=== PATIENT | male | born 2000 | race Caucasian/White ===

== ENCOUNTER 2019-06-14 02:01 | Inpatient (IN) | payer SELFPAY ==
[2019-06-14] VITALS (13 sets, daily range): BP systolic 123–146; BP diastolic 75–85
[~2019-06-14] VITALS: Ht 193 cm; Wt 196.9 kg
--- NOTE | 2019-06-14 02:05 | PHYS DOC ---
Past History Past Medical History: Hypertension Past Medical History MORBID OBESITY, Hx. possible WPW General Adult HPI: HPI: ".. I woke up with this... Chest pain..... and sweating... I have WPW or fast heart rate... they found it on a physical... but it always..or .. usually it goe s away... But I so short of breath.. a weak.. now. dizzy.. .".."I feel.. bad... ".. "This pain.. and fast heart rate.. has not stopped.." Patient is a 18 year old male who presents with above hx and complaints chest discomfort and tachycardia. Patient has a history of WPW. Pt. does not take meds for his occasional dysrhythmia. Pt. reports it never lasts more than a min. or two. Patient denies any change in meds. No excessive caffeine use or illicit drugs. Pt. does not smoke. Pt.has hx Morbid obesity. Patient normally follows with Dr. Pitts. Patient states his WPW was diagnosed on previous physical. Patient has never been any meds for this condition. Patient unable to quantify his chest pain-but rates it as moderately severe pain. Pain is localized to center of her chest. Does not radiate . Pain has been constant since awakening . Pt.very diaphoretic. Attempts at Valsalva resulted no change in the supraventricular tachycardia (rates to 220). Patient became hypotensive with systolics 80s-90. The patient moved to trauma for planned synchronized cardioversion. Patient given fluid bolus of LR . The patient received 300 mg of amiodarone, 2 mg of Versed and was cardioverted with 200 J. Patient had returned to a sinus rhythm in the 70s and elevation his blood pressure into the 120s systolic. Patient reports almost immediate relief of his chest pain and dyspnea. Review of Systems: Review of Systems: Constitutional: Denies fever or chills Eyes: Denies change in visual acuity HENT: Denies nasal congestion or sore throat Respiratory: Complains of shortness of breath Cardiovascular: Complains of chest pain GI: Complains of, nausea. Denies, vomiting, bloody stools or diarrhea : Denies dysuria Musculoskeletal: Denies back pain or joint pain Integument: Denies rash Neurologic: Denies headache, focal weakness or sensory changes Endocrine: Denies polyuria or polydipsia Lymphatic: Denies swollen glands Psychiatric: Denies depression or anxiety Heart Score: HEART Score for Chest Pain: HEART Score for Chest Pain Response (Comments) Value History Highly Suspicious [address] Depression 2 Risk Factors 1 or 2 Risk Factors 1 Troponin < Normal Limit 0 Total 5 Risk Factors: Risk Factors: DM, Current or recent (<one month) smoker, HTN, HLP, family history of CAD, obesity. Risk Scores: Score 0 - 3: 2.5% MACE over next 6 weeks - Discharge Home Score 4 - 6: 20.3% MACE over next 6 weeks - Admit for Clinical Observation Score 7 - 10: 72.7% MACE over next 6 weeks - Early Invasive Strategies Family History: Family History: Noncontributory Current Medications: Current Meds: See nursing for home meds Allergies: Allergies: No known drug allergies Physical Exam: PE: Constitutional: in acute distress, ill in appearance. [] HENT: Normocephalic, atraumatic, bilateral external ears normal, oropharynx moist, no oral exudates, nose normal. [] Eyes: PERRLA, EOMI, conjunctiva normal, no discharge. [] Neck: Normal range of motion, no tenderness, supple, no stridor. [] Cardiovascular: Tachycardia heart rate regular rhythm, no murmur []( heart rates on monitor excess of 220's) Lungs & Thorax: Bilateral breath sounds equal at apex on auscultation [] Abdomen: Bowel sounds decreased, soft, no tenderness, no masses, no pulsatile masses. Morbidly obese. Skin: Warm, diaphoretic, no erythema, no rash. [] Back: No tenderness, no CVA tenderness. [] Extremities: No tenderness, no cyanosis, no clubbing, ROM intact, no edema. No cording appreciated in the legs. Neurologic: Alert and oriented X 3, moves extremities on request, has distal sensory, EKG: EKG: My interpretation of EKG shows a supraventricular tachycardia rate of 225. Does have an ST strain pattern some suggestion of endocardial injury. EKG 1 at 0214 hrs. My interpretation of EKG to at 241 shows a sinus rhythm at 75 bpm. There is still some findings of ST strain pattern. This EKG was done status post synchronized conversion [] Radiology/Procedures: Radiology/Procedures: My interpretation of chest x-ray shows small lung volumes enlarged cardiac silhouette and increased cephalization. [] Course & Med Decision Making: Course & Med Decision Making Pertinent Labs and Imaging studies reviewed. (See chart for details) Pt. Admitted to Dr. Pitts with Cardiology consult. Synchronized cardioversion-see HPI. Critical care time 60 minutes. Impression: 1. Chest pain 2. WPW 3. Morbid obesity 4. HTN 5. Leukocytosis 14.1 6. Thrombocytosis 457 7. Elevated ALT [] Dragon Disclaimer: Dragon Disclaimer: This electronic medical record was generated, in whole or in part, using a voice recognition dictation system. Departure Departure: Disposition: 01 HOME/RESIDENCE PRIOR TO ADM Condition: STABLE Dragon Disclaimer This chart was dictated in whole or in part using Voice Recognition software in a busy, high-work load, and often noisy Emergency Department environment. It may contain unintended and wholly unrecognized errors or omissions. Dragon Disclaimer This chart was dictated in whole or in part using Voice Recognition software in a busy, high-work load, and often noisy Emergency Department environment. It may contain unintended and wholly unrecognized errors or omissions. YEIMI LEMUS MD Jun 14, 2019 02:05
[2019-06-14] MEDS ORDERED: AMIODARONE 150 MG/3 ML VIAL IVP ONE ×3 (02:26→04:30)
[2019-06-14 02:30] LABS: BASO % 0 % (0-3); EOS # 0.6 x10^3/uL (0.0-0.7); EOS % 4 % (0-3); HEMATOCRIT 39.8 % (39.0-53.0); HEMOGLOBIN 13.2 g/dL (13.0-17.5); LYMPH # 4.9 x10^3/uL (1.0-4.8); LYMPH % 35 % (24-48); MEAN CORPUSCULAR HEMOGLOBIN 25 pg (25-35); MEAN CORPUSCULAR HGB CONC 33 g/dL (31-37); MEAN CORPUSCULAR VOLUME 76 fL (79-100); MONO # 1.1 x10^3/uL (0.0-1.1); MONO % 8 % (0-9); NEUT # 7.5 x10^3uL (1.8-7.7); NEUT % 53 % (31-73); PLATELET COUNT 457 x10^3/uL (140-400); RED BLOOD COUNT 5.22 x10^6/uL (4.30-5.70); RED CELL DISTRIBUTION WIDTH 14.6 % (11.5-14.5); WHITE BLOOD COUNT 14.1 x10^3/uL (4.0-11.0)
[2019-06-14] MEDS ORDERED: MORPHINE SULFATE 2 MG/ML DISP.SYRIN. ONE (02:42)
[2019-06-14] MEDS ORDERED: ONDANSETRON PF 4 MG/2 ML VIAL. ONE (02:47)
[2019-06-14 02:52] LABS: ANION GAP 12 (6-14); BLOOD UREA NITROGEN 13 mg/dL (8-26); CALCIUM 8.9 mg/dL (8.5-10.1); CARBON DIOXIDE 27 mmol/L (21-32); CHLORIDE 101 mmol/L (98-107); CREATININE 0.9 mg/dL (0.7-1.3); GFR 107.6; GLUCOSE 118 mg/dL (70-99); POTASSIUM 3.5 mmol/L (3.5-5.1); SODIUM 140 mmol/L (136-145)
[2019-06-14 03:05] LABS: ALBUMIN 3.8 g/dL (3.4-5.0); ALK PHOS 100 U/L (46-116); ALT (SGPT) 65 U/L (16-63); AST (SGOT) 23 U/L (15-37); LIPASE 105 U/L (73-393); MAGNESIUM 2.1 mg/dL (1.8-2.4); TOTAL BILIRUBIN 0.1 mg/dL (0.2-1.0); TOTAL PROTEIN 8.1 g/dL (6.4-8.2)
[2019-06-14] MEDS ORDERED: AMIODARONE 450 MG/9 ML VIAL IV ONE (03:06)
[2019-06-14] MEDS ORDERED: IV DEXTROSE 5% 250 ML IV ONE (03:07)
[2019-06-14 03:12] LABS: DIRECT BILIRUBIN < 0.1 mg/dL (0.0-0.2)
[2019-06-14] MEDS ORDERED: ONDANSETRON PF 4 MG/2 ML VIAL. IVP ONE (03:15)
[2019-06-14] MEDS ORDERED: MORPHINE SULFATE 2 MG/ML DISP.SYRIN. IV ONE (03:15)
[2019-06-14] MEDS ORDERED: IV RINGERS SOLUTION,LACTATED 1,000 ML IV SCH (03:15)
[2019-06-14] MEDS ORDERED: ASPIRIN CHEWABLE 81 MG TABLET. PO ONE (03:15)
[2019-06-14] MEDS ORDERED: MIDAZOLAM HCL PF 5 MG/5 ML VIAL. IV ONE (03:15)
[2019-06-14] MEDS ORDERED: AMIODARONE 150 MG in IV DEXTROSE 5% 100 ML IVP ONE (03:15)
--- NOTE | 2019-06-14 03:18 | RAD ---
EXAM: AP View of the chest DATE: 06/14/2019 2:07 AM INDICATION: Chest pain COMPARISON: No Prior FINDINGS: The heart is not enlarged. Mediastinal and hilar contours are normal. No focal parenchymal airspace opacity. Low lung volumes. No pleural effusion or pneumothorax. IMPRESSION: 1. No radiographic evidence for acute cardiopulmonary process. Electronically signed by: Vijay Cee MD (06/14/2019 3:15 AM) FRITZ
[2019-06-14] MEDS ORDERED: AMIODARONE 450 MG in IV DEXTROSE 5% 250 ML IV ONE ×2 (03:30→04:00)
[2019-06-14] MEDS ORDERED: ONDANSETRON PF 4 MG/2 ML VIAL. IVP PRN (03:30)
[2019-06-14] MEDS ORDERED: MORPHINE SULFATE 2 MG/ML DISP.SYRIN. IVP PRN (03:30)
[2019-06-14] MEDS ORDERED: ACETAMINOPHEN 325 MG TABLET PO PRN (03:30)
[2019-06-14] MEDS ORDERED: ANTI-COAG MONITOR BY PHARMACY. MC PRN (03:45)
[2019-06-14] MEDS ORDERED: ENOXAPARIN ** NOTE DOSE ** SYRINGE SQ ONE (03:45)
--- NOTE | 2019-06-14 04:56 | EKG ---
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
[2019-06-14] MEDS ORDERED: VENL225T PO (05:35)
--- NOTE | 2019-06-14 05:52 | NUR ---
The patient, MARILIN OBANDO, 18 y/o, M admitted by MARY GATES MD, was given written information regarding hospital policies, unit procedures and contact persons. Valuables havent been checked yet due to them not coming up from the ED. ED notified said they would look for them. pt is on telemetry currently sinus rhythm. pt has no complaints at this time and is currently resting in his room with light off.
--- NOTE | 2019-06-14 07:48 | PDOC2 ---
CARDIAC CONSULT DATE OF CONSULT Date Of Consult DATE: 06/14/19 TIME: 07:41 REASON FOR CONSULT Reason for Consult Chest pain Hypertension WPW REFERRING PHYSICIAN Referring Physician Dr. Smith SOURCE Source: Chart review, Patient HPI History of Present Illness This is a 18 yo male who presented secondary to chest pain, tachycardia, and dizziness. Has history of WPW. Was diagnosed in 2018 with routine EKG for something unrelated and had workup conducted at [facility] at that time. Ablation was discuss as a possible future intervention. Patient reports that he has not had any heart or rhythm problems until last night. Was laying in bed last night late and began having pressure in his central chest. Could tell that his heart was beating very fast. Was short of breath, dizzy, and nauseated. Had parents bring him into the ED for further evaluation and treatment. Was noted in SVT with her rate near 225. Valsalva unsuccessful. Was given amiodarone and sedation and cardioverted. Converted back to SR and has been maintaining. Patient felling well this am. PAST MEDICAL HISTORY Cardiovascular: Other (SVT) Endocrine: Other (morbid obesity ) PAST SURGICAL HISTORY Past Surgical History: No pertinent history FAMILY HISTORY Family History: Hypertension SOCIAL HISTORY Smoke: No ALCOHOL: none Drugs: None Lives: with Family CURRENT MEDICATIONS Current Medications Current Medications Aspirin (Aspirin Chewable) 324 mg 1X ONCE PO Last administered on 06/14/19at 03:10; Start 06/14/19 at 03:15; Stop 06/14/19 at 03:16; Status DC Lactated Ringer's 1,000 ml @ 1,000 mls/hr Q1H IV Last administered on 06/14/19at 02:20; Start 06/14/19 at 03:15; Stop 06/14/19 at 04:14; Status DC Amiodarone HCl 150 mg/Dextrose 103 ml @ 300 mls/hr 1X ONCE IVP ; Start 06/14/19 at 03:15; Stop 06/14/19 at 03:35; Status Cancel Midazolam HCl (Versed) 5 mg 1X ONCE IV Last administered on 06/14/19at 02:37; Start 06/14/19 at 03:15; Stop 06/14/19 at 03:16; Status DC Amiodarone HCl (Cordarone) 150 mg STK-MED ONCE IVP ; Start 06/14/19 at 02:26; Stop 06/14/19 at 02:26; Status DC Amiodarone HCl (Cordarone) 150 mg STK-MED ONCE IVP ; Start 06/14/19 at 02:27; Stop 06/14/19 at 02:27; Status DC Morphine Sulfate (Morphine 2mg Syringe) 2 mg STK-MED ONCE .ROUTE ; Start 06/14/19 at 02:42; Stop 06/14/19 at 02:42; Status DC Ondansetron HCl (Zofran) 4 mg STK-MED ONCE .ROUTE ; Start 06/14/19 at 02:47; Stop 06/14/19 at 02:48; Status DC Amiodarone HCl 450 mg/Dextrose 259 ml @ 0 mls/hr 1X ONCE IV ; Start 06/14/19 at 03:30; Stop 06/14/19 at 03:31; Status Cancel Morphine Sulfate (Morphine 2mg Syringe) 2 mg 1X ONCE IV Last administered on 06/14/19at 02:43; Start 06/14/19 at 03:15; Stop 06/14/19 at 03:16; Status DC Enoxaparin Sodium (Lovenox 100mg Syringe) 200 mg 1X ONCE SQ Last administered on 06/14/19at 03:45; Start 06/14/19 at 03:45; Stop 06/14/19 at 03:46; Status DC Ondansetron HCl (Zofran) 8 mg 1X ONCE IVP Last administered on 06/14/19at 02:49; Start 06/14/19 at 03:15; Stop 06/14/19 at 03:16; Status DC Amiodarone HCl (Cordarone) 450 mg STK-MED ONCE IV ; Start 06/14/19 at 03:06; Stop 06/14/19 at 03:07; Status DC Dextrose 250 ml @ As Directed STK-MED ONCE IV ; Start 06/14/19 at 03:07; Stop 06/14/19 at 03:07; Status DC Ondansetron HCl (Zofran) 4 mg PRN Q4HRS PRN IVP NAUSEA/VOMITING; Start 06/14/19 at 03:30; Stop 06/15/19 at 03:29 Morphine Sulfate (Morphine 2mg Syringe) 2 mg PRN Q4HRS PRN IVP PAIN; Start 06/14/19 at 03:30; Stop 06/15/19 at 03:29 Acetaminophen (Tylenol) 650 mg PRN Q4HRS PRN PO FEVER; Start 06/14/19 at 03:30; Stop 06/15/19 at 03:29 Aspirin (Aspirin Chewable) 81 mg DAILYWBKFT PO ; Start 06/14/19 at 08:00 Enoxaparin Sodium (Lovenox 100mg Syringe) 200 mg BID SQ ; Start 06/14/19 at 21:00 Amiodarone HCl 450 mg/Dextrose 259 ml @ 0 mls/hr 1X ONCE IV Last administered on 06/14/19at 03:45; Start 06/14/19 at 04:00; Stop 06/14/19 at 04:01; Status DC Info (Anti-Coagulation Monitoring By Pharmacy) 1 each PRN DAILY PRN MC SEE COMMENTS; Start 06/14/19 at 03:45 Amiodarone HCl (Cordarone) 300 mg 1X ONCE IVP Last administered on 06/14/19at 02:30; Start 06/14/19 at 04:30; Stop 06/14/19 at 04:31; Status DC Active Scripts Active Reported Venlafaxine Hcl Er (Venlafaxine Hcl) 225 Mg Tab.er.24 2 Tab PO DAILY 30 Days ALLERGIES Allergies: Coded Allergies: No Known Drug Allergies (Unverified , 06/14/19) ROS Review of Systems 14 point ROS conducted with pertinent positives noted above in HPI PHYSICAL EXAM General: Alert, Oriented X3, Cooperative, No acute distress HEENT: Atraumatic Lungs: Clear to auscultation, Normal air movement Heart: Regular rate Abdomen: Soft, Other (obese) Skin: No rashes, No breakdown Neuro: Normal speech, Sensation intact Psych/Mental Status: Mental status NL, Mood NL MUSCULOSKELETAL: No joint tenderness VITALS Vital Signs Vital Signs Date Time Temp Pulse Resp B/P (MAP) Pulse Ox O2 Delivery O2 Flow Rate FiO2 06/14/19 07:16 18 06/14/19 06:29 81 136/85 (102) 96 Room Air 06/14/19 05:06 97.6 06/14/19 03:42 LABS LABS Laboratory Tests Test 06/14/19 02:13 White Blood Count 14.1 x10^3/uL (4.0-11.0) Red Blood Count 5.22 x10^6/uL (4.30-5.70) Hemoglobin 13.2 g/dL (13.0-17.5) Hematocrit 39.8 % (39.0-53.0) Mean Corpuscular Volume 76 fL (79-100) Mean Corpuscular Hemoglobin 25 pg (25-35) Mean Corpuscular Hemoglobin Concent 33 g/dL (31-37) Red Cell Distribution Width 14.6 % (11.5-14.5) Platelet Count 457 x10^3/uL (140-400) Neutrophils (%) (Auto) 53 % (31-73) Lymphocytes (%) (Auto) 35 % (24-48) Monocytes (%) (Auto) 8 % (0-9) Eosinophils (%) (Auto) 4 % (0-3) Basophils (%) (Auto) 0 % (0-3) Neutrophils # (Auto) 7.5 x10^3uL (1.8-7.7) Lymphocytes # (Auto) 4.9 x10^3/uL (1.0-4.8) Monocytes # (Auto) 1.1 x10^3/uL (0.0-1.1) Eosinophils # (Auto) 0.6 x10^3/uL (0.0-0.7) Basophils # (Auto) 0.0 x10^3/uL (0.0-0.2) Prothrombin Time 9.3 SEC (9.4-11.4) Prothromb Time International Ratio 0.9 (0.9-1.1) Activated Partial Thromboplast Time 28 SEC (23-33) D-Dimer (Quynh) < 0.19 mg/L (0.00-0.50) Sodium Level 140 mmol/L (136-145) Potassium Level 3.5 mmol/L (3.5-5.1) Chloride Level 101 mmol/L (98-107) Carbon Dioxide Level 27 mmol/L (21-32) Anion Gap 12 (6-14) Blood Urea Nitrogen 13 mg/dL (8-26) Creatinine 0.9 mg/dL (0.7-1.3) Estimated GFR (Cockcroft-Gault) 107.6 Glucose Level 118 mg/dL (70-99) Calcium Level 8.9 mg/dL (8.5-10.1) Magnesium Level 2.1 mg/dL (1.8-2.4) Total Bilirubin 0.1 mg/dL (0.2-1.0) Direct Bilirubin < 0.1 mg/dL (0.0-0.2) Aspartate Amino Transf (AST/SGOT) 23 U/L (15-37) Alanine Aminotransferase (ALT/SGPT) 65 U/L (16-63) Alkaline Phosphatase 100 U/L (46-116) Creatine Kinase 125 U/L (39-308) Troponin I Quantitative < 0.017 ng/mL (0-0.055) TK-Jqp-I-Type Natriuretic Peptide 27 pg/mL (0-124) Total Protein 8.1 g/dL (6.4-8.2) Albumin 3.8 g/dL (3.4-5.0) Lipase 105 U/L (73-393) ASSESSMENT/PLAN Assessment/Plan 1. SVT, symptomatic; s/p cadioversion. Converted to SR and has been maintaining. On Amiodarone gtt 2. WPW; diagnosed 2017 with routine EKG conducted as part of PE. Had workup including echocardiogram at [facility] 3. Leukocytosis, no fevers Recommendations TSH Start metoprolol for rate control ASA Discontinue Amiodarone gtt Obtain records from [facility] UDS Further pending above F/u with [facility] cardiology upon discharge MICHELLE HILL APRN Jun 14, 2019 07:48
[2019-06-14] MEDS ORDERED: ASPIRIN CHEWABLE 81 MG TABLET. PO SCH (08:00)
[2019-06-14] MEDS: METOPROLOL TART IMMED RELEASE 25 MG TABLET PO SCH ×2 (10:15→20:39)
--- NOTE | 2019-06-14 10:26 | NUR ---
IP: patient PUI for COVID-19, requires contact ans airborne precautions.
[2019-06-14] MEDS: VENLAFAXINE 75 MG TABLET. PO SCH ×2 (14:01→20:39)
--- NOTE | 2019-06-14 14:17 | EKG ---
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 CONSIDER WPW, TYPE B Electronically Signed On 06-15-2019 11:14:57 CDT by Beto Francis
--- NOTE | 2019-06-14 15:29 | HP ---
ADMIT DATE: 06/14/2019 HISTORY OF PRESENT ILLNESS: He is a 18-year-old male, he came in through the Emergency Room with a chief complaint of chest pain, has a history of WPW. He has been on cardiac support for this in the past. He has been evaluated by multiple cardiologists for this, anyway he feels bad. The patient had severe chest discomfort, tachycardia. The patient was seen in the Emergency Room, became hypotensive, blood pressure in the 80s and 90s. He had planned synchronized cardio conversion with a fluid bolus of LR received 300 mg of amiodarone, 2 mg of Versed and cardiac converted 200 joules. The patient was then converted back into sinus rhythm. Blood pressure went up to 120, the ER physician did an excellent job there. As a result of this, the patient was admitted to the hospital for further evaluation. He was placed on the floor for cardiac monitoring and Cardiology consultation. PAST MEDICAL HISTORY: As noted, essential hypertension, morbid obesity and history of WPW. Other past medical history includes that of the fracture of the left arm, generalized anxiety. FAMILY HISTORY: Unknown. ALLERGIES: No known allergies. HOME MEDICATIONS: Effexor 225 mg 2 tablets twice a day. SOCIAL HISTORY: Denies smoking, alcohol or drug use. REVIEW OF SYSTEMS: The patient outside of the chest pain, which was converted when they did the cardiac conversion on the ER, otherwise presently just drowsy, sleepy from the Versed that he received. PHYSICAL EXAMINATION: GENERAL: This is a pleasant white male in no apparent distress. VITAL SIGNS: Blood pressure 130/80, respiratory rate 16, pulse 80 and regular, and afebrile. HEENT: The patient's head was atraumatic and normocephalic. Eyes: PERRLA without jaundice. Mouth and throat were normal. NECK: Supple, no JVD or thyromegaly. LUNGS: Diminished throughout, but clear. CARDIOVASCULAR: Presently regular sinus rhythm, S1 and S2, without murmur, rub, thrill, or extra heart sound. ABDOMEN: Soft, nontender, no rebound or guarding. Positive bowel sounds, no hepatosplenomegaly was noted. EXTREMITIES: No clubbing, cyanosis or edema. NEUROLOGIC: The patient was alert and oriented x3. The patient otherwise is resting fairly comfortably and will continue to be monitored carefully. LABORATORY DATA: White count was elevated, no doubt from the cardio conversion and the other paraphernalia performed. His ALT was slightly elevated at 65. Otherwise, blood sugar 118. Good kidney function. GFR unremarkable. EKG pending. IMPRESSION: Weanq-Aojtsxzkx-Loiip, supraventricular tachycardia symptomatic, leukocytosis. The patient will be monitored carefully. Other labs are pending. PLAN: We will go ahead and consult Cardiology, make further evaluation on him as indicated. Chest x-ray was unremarkable. MARY GATES MD DR: LOUISA/cheo JOB#: [id number] / [id number]
--- NOTE | 2019-06-14 16:48 | EKG ---
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
--- NOTE | 2019-06-14 17:50 | NUR ---
Pt taken off amiodarone drip this AM and started on metoprolol per cardiology. Pt tolerated well, vital signs were stable throughout shift. Denies CP. COVID test still pending and pt still on precautions. Pt alert, oriented, rested comfortably in room for shift.
[2019-06-14 19:44] LABS: THYROID STIM HORMONE (TSH) 13.097 uIU/mL (0.358-3.740)
[2019-06-14] MEDS: ENOXAPARIN ** NOTE DOSE ** SYRINGE SQ SCH (20:39)
[2019-06-15 06:22] LABS: BASO # 0.1 x10^3/uL (0.0-0.2); BASO % 1 % (0-3); EOS # 0.4 x10^3/uL (0.0-0.7); EOS % 5 % (0-3); HEMATOCRIT 36.5 % (39.0-53.0); HEMOGLOBIN 12.1 g/dL (13.0-17.5); LYMPH # 3.6 x10^3/uL (1.0-4.8); LYMPH % 39 % (24-48); MEAN CORPUSCULAR HEMOGLOBIN 25 pg (25-35); MEAN CORPUSCULAR HGB CONC 33 g/dL (31-37); MEAN CORPUSCULAR VOLUME 76 fL (79-100); MONO # 0.5 x10^3/uL (0.0-1.1); MONO % 6 % (0-9); NEUT # 4.6 x10^3uL (1.8-7.7); NEUT % 50 % (31-73); PLATELET COUNT 338 x10^3/uL (140-400); RED BLOOD COUNT 4.78 x10^6/uL (4.30-5.70); RED CELL DISTRIBUTION WIDTH 14.3 % (11.5-14.5); WHITE BLOOD COUNT 9.2 x10^3/uL (4.0-11.0)
[2019-06-15 06:31] LABS: CALCIUM 8.9 mg/dL (8.5-10.1); CREATININE 0.9 mg/dL (0.7-1.3); GFR 107.6; POTASSIUM 4.7 mmol/L (3.5-5.1)
[2019-06-15 06:32] VITALS: BP 117/76
--- NOTE | 2019-06-15 07:52 | PDOC ---
CARDIO Progress Notes Date & Time Date of Service DATE: 06/15/19 TIME: 07:45 Time of Evaluation 07:45 Subjective Notes No chest pain, palpitations, dizziness, diaphoresis Vitals Vitals Vital Signs Date Time Temp Pulse Resp B/P (MAP) Pulse Ox O2 Delivery O2 Flow Rate FiO2 06/15/19 06:32 98.2 58 20 117/76 (90) 96 Room Air 06/14/19 03:42 Weight Weight [ ] Input and Output I.O. Intake and Output 06/15/19 07:00 Intake Total 360 ml Balance 360 ml Intake Oral 360 ml # Voids 2 Laboratory Labs Laboratory Tests Test 06/14/19 02:13 06/14/19 05:45 06/15/19 05:49 White Blood Count 14.1 x10^3/uL (4.0-11.0) 9.2 x10^3/uL (4.0-11.0) Red Blood Count 5.22 x10^6/uL (4.30-5.70) 4.78 x10^6/uL (4.30-5.70) Hemoglobin 13.2 g/dL (13.0-17.5) 12.1 g/dL (13.0-17.5) Hematocrit 39.8 % (39.0-53.0) 36.5 % (39.0-53.0) Mean Corpuscular Volume 76 fL (79-100) 76 fL (79-100) Mean Corpuscular Hemoglobin 25 pg (25-35) 25 pg (25-35) Mean Corpuscular Hemoglobin Concent 33 g/dL (31-37) 33 g/dL (31-37) Red Cell Distribution Width 14.6 % (11.5-14.5) 14.3 % (11.5-14.5) Platelet Count 457 x10^3/uL (140-400) 338 x10^3/uL (140-400) Neutrophils (%) (Auto) 53 % (31-73) 50 % (31-73) Lymphocytes (%) (Auto) 35 % (24-48) 39 % (24-48) Monocytes (%) (Auto) 8 % (0-9) 6 % (0-9) Eosinophils (%) (Auto) 4 % (0-3) 5 % (0-3) Basophils (%) (Auto) 0 % (0-3) 1 % (0-3) Neutrophils # (Auto) 7.5 x10^3uL (1.8-7.7) 4.6 x10^3uL (1.8-7.7) Lymphocytes # (Auto) 4.9 x10^3/uL (1.0-4.8) 3.6 x10^3/uL (1.0-4.8) Monocytes # (Auto) 1.1 x10^3/uL (0.0-1.1) 0.5 x10^3/uL (0.0-1.1) Eosinophils # (Auto) 0.6 x10^3/uL (0.0-0.7) 0.4 x10^3/uL (0.0-0.7) Basophils # (Auto) 0.0 x10^3/uL (0.0-0.2) 0.1 x10^3/uL (0.0-0.2) Prothrombin Time 9.3 SEC (9.4-11.4) Prothromb Time International Ratio 0.9 (0.9-1.1) Activated Partial Thromboplast Time 28 SEC (23-33) D-Dimer (Quynh) < 0.19 mg/L (0.00-0.50) Sodium Level 140 mmol/L (136-145) 138 mmol/L (136-145) Potassium Level 3.5 mmol/L (3.5-5.1) 4.7 mmol/L (3.5-5.1) Chloride Level 101 mmol/L (98-107) 103 mmol/L (98-107) Carbon Dioxide Level 27 mmol/L (21-32) 29 mmol/L (21-32) Anion Gap 12 (6-14) 6 (6-14) Blood Urea Nitrogen 13 mg/dL (8-26) 12 mg/dL (8-26) Creatinine 0.9 mg/dL (0.7-1.3) 0.9 mg/dL (0.7-1.3) Estimated GFR (Cockcroft-Gault) 107.6 107.6 Glucose Level 118 mg/dL (70-99) 92 mg/dL (70-99) Calcium Level 8.9 mg/dL (8.5-10.1) 8.9 mg/dL (8.5-10.1) Magnesium Level 2.1 mg/dL (1.8-2.4) Total Bilirubin 0.1 mg/dL (0.2-1.0) Direct Bilirubin < 0.1 mg/dL (0.0-0.2) Aspartate Amino Transf (AST/SGOT) 23 U/L (15-37) Alanine Aminotransferase (ALT/SGPT) 65 U/L (16-63) Alkaline Phosphatase 100 U/L (46-116) Creatine Kinase 125 U/L (39-308) Troponin I Quantitative < 0.017 ng/mL (0-0.055) CG-Uoj-I-Type Natriuretic Peptide 27 pg/mL (0-124) Total Protein 8.1 g/dL (6.4-8.2) Albumin 3.8 g/dL (3.4-5.0) Triglycerides Level 186 mg/dL (0-150) Cholesterol Level 193 mg/dL (0-200) LDL Cholesterol, Calculated 107 mg/dL (0-100) VLDL Cholesterol, Calculated 37 mg/dL (0-40) Non-HDL Cholesterol Calculated 144 mg/dL (0-129) HDL Cholesterol 49 mg/dL (40-60) Cholesterol/HDL Ratio 3.0 Lipase 105 U/L (73-393) Thyroid Stimulating Hormone (TSH) 13.097 uIU/mL (0.358-3.740) Coronavirus (COVID-19)(PCR) See separate report Physical Exams HEENT: Neck Supple W Full Motion Chest: Symmetric Lungs: Clear to Auscultation Heart: S1S2, RRR Abdomen: Soft N/T, Other (obese ) Extremities: No Edema Neurology: alert, oriented Assessment Assessment 1. SVT, symptomatic; s/p cardioversion. Converted to SR and has been maintaining. 2. WPW; diagnosed 2018 with routine EKG conducted as part of PE. Had workup including echocardiogram at [facility] 3. Hyperlipidemia 4. Hypothyroidism; as per PCP Recommendations Metoprolol for rate control ASA Encouraged dietary modification and exercise/weight loss F/u with [facility] cardiology upon discharge MICHELLE HILL APRN Jun 15, 2019 07:52
[2019-06-15] MEDS ORDERED: ASPIRIN ENTERIC COATED 81 MG TABLET.DR. PO SCH (08:00)
[2019-06-15] MEDS ORDERED: METO25TA4 PO (08:55)
[2019-06-15] MEDS ORDERED: ASPI-612 PO (08:55)
[2019-06-15] MEDS: METOPROLOL TART IMMED RELEASE 25 MG TABLET PO SCH (09:00)
[2019-06-15] MEDS: ENOXAPARIN ** NOTE DOSE ** SYRINGE SQ SCH (09:00)
[2019-06-15] MEDS: VENLAFAXINE 75 MG TABLET. PO SCH (09:00)
[2019-06-15] MEDS ORDERED: LEVOTHYROXINE 100 MCG TABLET PO SCH (09:30)
[2019-06-15 10:55] LABS: BARBITURATES NEG (NEG); BENZODIAZEPINES POS (NEG); CANNABINOIDS NEG (NEG); COCAINE NEG (NEG); METHADONE NEG (NEG); OPIATES NEG (NEG); PHENCYCLIDINE NEG (NEG)
[2019-06-15 11:00] VITALS: BP 135/66
[2019-06-15 11:01] LABS: AMPHETAMINE/METHAMPHETAMINE NEG (NEG)
[2019-06-15] MEDS ORDERED: LEVO100T5 PO (11:05)
--- NOTE | 2019-06-15 11:50 | NUR ---
Discharge Note: MARILIN OBANDO1 [facility] Discharge instructions and discharge home medications reviewed with Patient and a copy given. All questions have been answered and understanding verbalized. Patient left the unit via wheelchair with all personal belongings. Patient was discharged to home and transported by a family member. The following instructions and handouts were given: Bradycardia, Hypotension, chest pain, and WPW syndrome. Discontinued all peripheral lines. Tele removed.
[2019-06-15 12:02] LABS: BILIRUBIN,URINE NEG (NEG); CLARITY,URINE CLEAR; COLOR,URINE YELLOW; GLUCOSE,URINE NEG (NEG); NITRITE,URINE NEG (NEG); UROBILINOGEN,URINE 0.2 mg/dL (0.2 mg/dL)
[2019-06-15 12:03] LABS: BACTERIA,URINE 0 /HPF (0-FEW); SQUAMOUS EPITHELIAL CELL,UR OCC /LPF; WBC,URINE OCC /HPF (0-4)
--- NOTE | 2019-06-16 11:30 | DS ---
DATE OF DISCHARGE: 06/15/2019 HOSPITAL COURSE: A 18-year-old male came in with possible WPW versus SVT. The patient was cardio converted in the Emergency Room and came back into sinus rhythm. The patient's labs did show an elevated TSH of 13. He was placed on levothyroxine 100 mcg. Cholesterol labs were basically unremarkable. He made good progress. He was seen by Cardiology. 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 Otherwise, the patient made good progress during the rest of his hospitalization and there were no complications noted. IMPRESSION: Supraventricular tachycardia, symptomatic, possible Adqwf-Ztukgqzap-Zssdd, diagnosed in 2018; hyperlipidemia, hypothyroidism. The patient uses metoprolol for rate control. Make further evaluation on an outpatient, low sodium heart healthy diet, decreased activity. PLAN: As above. MARY GATES MD DR: LOUISA/cheo JOB#: [id number] / [id number]
== END 2019-06-15 11:50 | disposition home or self-care (01) | DRG 309 ==
LOC: ER 02:01 → 1 SOUTH 03:00
PROVIDERS: ADMIT Family Medicine; ATTEND Family Medicine
PROC: 5A2204Z Restoration of Cardiac Rhythm, Single (ICD-10-PCS; principal; 2019-06-14)
DX: I47.1 Supraventricular tachycardia (principal); Z68.43 Body mass index [BMI] 50.0-59.9, adult; D72.829 Elevated white blood cell count, unspecified; E03.9 Hypothyroidism, unspecified; E66.01 Morbid (severe) obesity due to excess calories; E78.5 Hyperlipidemia, unspecified; F41.1 Generalized anxiety disorder; I10 Essential (primary) hypertension; I45.6 Pre-excitation syndrome; D47.3 Essential (hemorrhagic) thrombocythemia; Z82.49 Family history of ischemic heart disease and other diseases of the circulatory system
CPT/HCPCS: 36415; 71045; 80048; 80061; 80076; 80307; 81001; 82550; 83690; 83735; 83880; 84443; 84484; 85025; 85379; 85610; 85730; 93005; J0282; J1650; J2250; J2270; J2405; J7120

== ENCOUNTER 2019-07-15 02:23 | Inpatient (IN) | payer SELFPAY ==
[~2019-07-15] VITALS: Ht 193 cm; Wt 200.0 kg
[~2019-07-15 02:23] MED LIST: ASPI-612 PO; LEVO100T5 PO; METO25TA4 PO; VENL225T PO
[2019-07-15] MEDS ORDERED: IV NORMAL SALINE 1,000ML 1,000 ML IV ONE ×2 (02:36→02:50)
[2019-07-15] MEDS ORDERED: MIDAZOLAM HCL PF 5 MG/5 ML VIAL. ONE (02:51)
[2019-07-15 02:54] LABS: BASO % 0 % (0-3); EOS # 0.5 x10^3/uL (0.0-0.7); EOS % 4 % (0-3); HEMATOCRIT 40.2 % (39.0-53.0); HEMOGLOBIN 13.2 g/dL (13.0-17.5); LYMPH # 3.9 x10^3/uL (1.0-4.8); LYMPH % 31 % (24-48); MEAN CORPUSCULAR HEMOGLOBIN 25 pg (25-35); MEAN CORPUSCULAR HGB CONC 33 g/dL (31-37); MEAN CORPUSCULAR VOLUME 75 fL (79-100); MONO % 8 % (0-9); NEUT # 7.1 x10^3uL (1.8-7.7); NEUT % 56 % (31-73); PLATELET COUNT 402 x10^3/uL (140-400); RED BLOOD COUNT 5.34 x10^6/uL (4.30-5.70); RED CELL DISTRIBUTION WIDTH 14.6 % (11.5-14.5); WHITE BLOOD COUNT 12.5 x10^3/uL (4.0-11.0)
[2019-07-15] MEDS ORDERED: MIDAZOLAM HCL PF 5 MG/5 ML VIAL. IV ONE (02:58)
[2019-07-15] MEDS ORDERED: METOPROLOL TARTRATE 5 MG/5 ML VIAL. IV ONE (03:00)
[2019-07-15 03:07] LABS: CALCIUM 9.1 mg/dL (8.5-10.1); GFR 95.3; POTASSIUM 3.9 mmol/L (3.5-5.1)
[2019-07-15 03:08] LABS: ALBUMIN 3.7 g/dL (3.4-5.0); ALBUMIN/GLOBULIN RATIO 0.8 (1.0-1.7); MAGNESIUM 2.2 mg/dL (1.8-2.4); TOTAL BILIRUBIN 0.3 mg/dL (0.2-1.0); TOTAL PROTEIN 8.1 g/dL (6.4-8.2)
--- NOTE | 2019-07-15 03:15 | EKG ---
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
[2019-07-15] MEDS ORDERED: ONDANSETRON PF 4 MG/2 ML VIAL. IVP PRN (03:30)
--- NOTE | 2019-07-15 03:30 | PHYS DOC ---
Past History Past Medical History: Hypertension, Other Additional Past Medical Histor: wpw Past Surgical History: No Surgical History Alcohol Use: None General Adult EDM: Chief Complaint: Palpitations HPI: HPI: Patient is a 18-year-old male who presents to ER today for evaluation of chest pain with heart palpitation, woke him up from his sleep. Patient has history of SVT, WPW. Patient was not admitted here in June for the same problem. Patient is currently on levothyroxine, metoprolol. Patient is scheduled for cardiac ablation sometime in August. Patient said he has been taking his medication as directed. Patient denies any fever, no cough. Patient denies being exposed to anybody who tested positive for COVID-19. Review of Systems: Review of Systems: Constitutional: Denies fever or chills Eyes: Denies change in visual acuity HENT: Denies nasal congestion or sore throat Respiratory: Denies cough or shortness of breath Cardiovascular: Positive for chest pain, heart palpitation GI: Denies abdominal pain, nausea, vomiting, bloody stools or diarrhea : Denies dysuria Musculoskeletal: Denies back pain or joint pain Integument: Denies rash Neurologic: Denies headache, focal weakness or sensory changes Endocrine: Denies polyuria or polydipsia Lymphatic: Denies swollen glands Psychiatric: Denies depression or anxiety Heart Score: HEART Score for Chest Pain: HEART Score for Chest Pain Response (Comments) Value History Slighlty/Non-Suspicious 0 ECG Nonspecific Repolarizatio 1 Age < 45 0 Risk Factors 1 or 2 Risk Factors 1 Total 2 Risk Factors: Risk Factors: DM, Current or recent (<one month) smoker, HTN, HLP, family history of CAD, obesity. Risk Scores: Score 0 - 3: 2.5% MACE over next 6 weeks - Discharge Home Score 4 - 6: 20.3% MACE over next 6 weeks - Admit for Clinical Observation Score 7 - 10: 72.7% MACE over next 6 weeks - Early Invasive Strategies Current Medications: Current Meds: Current Medications Medications (Trade) Dose Ordered Sig/Tramaine Start Time Stop Time Status Last Admin Dose Admin Metoprolol Tartrate (Lopressor Vial) 5 mg 1X ONCE 07/15/19 03:00 07/15/19 03:11 DC Midazolam HCl (Versed) 5 mg STK-MED ONCE 07/15/19 02:51 07/15/19 02:51 DC Ondansetron HCl (Zofran) 4 mg PRN Q4HRS PRN 07/15/19 03:30 07/16/19 03:29 UNV Allergies: Allergies: Allergies Coded Allergies Type Severity Reaction Last Updated Verified No Known Drug Allergies 06/14/19 No Physical Exam: PE: Constitutional: Well developed, well nourished, IN MILD acute distress, non- toxic appearance. [] HENT: Normocephalic, atraumatic, bilateral external ears normal, oropharynx moist, no oral exudates, nose normal. [] Eyes: PERRLA, EOMI, conjunctiva normal, no discharge. [] Neck: Normal range of motion, no tenderness, supple, no stridor. [] Cardiovascular: RAPID HEART RATE , no murmur [] Lungs & Thorax: Bilateral breath sounds clear to auscultation [] Abdomen: Bowel sounds normal, soft, no tenderness, no masses, no pulsatile masses. [] Skin: PALE AND DIAPHORESIS, no erythema, no rash. [] Back: No tenderness, no CVA tenderness. [] Extremities: No tenderness, no cyanosis, no clubbing, ROM intact, no edema. [] Neurologic: Alert and oriented X 3, normal motor function, normal sensory function, no focal deficits noted. [] Psychologic: Affect normal, judgement normal, mood normal. [] Current Patient Data: Labs: Laboratory Tests Test 07/15/19 02:36 White Blood Count 12.5 x10^3/uL (4.0-11.0) H Red Blood Count 5.34 x10^6/uL (4.30-5.70) Hemoglobin 13.2 g/dL (13.0-17.5) Hematocrit 40.2 % (39.0-53.0) Mean Corpuscular Volume 75 fL (79-100) L Mean Corpuscular Hemoglobin 25 pg (25-35) Mean Corpuscular Hemoglobin Concent 33 g/dL (31-37) Red Cell Distribution Width 14.6 % (11.5-14.5) H Platelet Count 402 x10^3/uL (140-400) H Neutrophils (%) (Auto) 56 % (31-73) Lymphocytes (%) (Auto) 31 % (24-48) Monocytes (%) (Auto) 8 % (0-9) Eosinophils (%) (Auto) 4 % (0-3) H Basophils (%) (Auto) 0 % (0-3) Neutrophils # (Auto) 7.1 x10^3uL (1.8-7.7) Lymphocytes # (Auto) 3.9 x10^3/uL (1.0-4.8) Monocytes # (Auto) 1.0 x10^3/uL (0.0-1.1) Eosinophils # (Auto) 0.5 x10^3/uL (0.0-0.7) Basophils # (Auto) 0.0 x10^3/uL (0.0-0.2) Sodium Level 139 mmol/L (136-145) Potassium Level 3.9 mmol/L (3.5-5.1) Chloride Level 104 mmol/L (98-107) Carbon Dioxide Level 24 mmol/L (21-32) Anion Gap 11 (6-14) Blood Urea Nitrogen 19 mg/dL (8-26) Creatinine 1.0 mg/dL (0.7-1.3) Estimated GFR (Cockcroft-Gault) 95.3 BUN/Creatinine Ratio 19 (6-20) Glucose Level 107 mg/dL (70-99) H Calcium Level 9.1 mg/dL (8.5-10.1) Magnesium Level 2.2 mg/dL (1.8-2.4) Total Bilirubin 0.3 mg/dL (0.2-1.0) Aspartate Amino Transferase (AST) 25 U/L (15-37) Alanine Aminotransferase (ALT) 75 U/L (16-63) H Alkaline Phosphatase 98 U/L (46-116) Troponin I Quantitative < 0.017 ng/mL (0-0.055) Total Protein 8.1 g/dL (6.4-8.2) Albumin 3.7 g/dL (3.4-5.0) Albumin/Globulin Ratio 0.8 (1.0-1.7) L Vital Signs: Vital Signs Date Time Temp Pulse Resp B/P (MAP) Pulse Ox O2 Delivery O2 Flow Rate FiO2 07/15/19 02:23 97.6 223 18 135/66 (89) 96 Room Air EKG: EKst EKG WAS DONE AT 0236, RATE OF 229 BPM, SVT, WPW pattern. No stemi. Read by this physician[] 2ND EKG was done at 0303 after cardioversion, rate of 82 bpm, sinus rhythm, NO STEMI. Read by this physician. Radiology/Procedures: Radiology/Procedures: [address] [address] IMAGING REPORT Signed PATIENT: MARILIN OBANDO ACCOUNT: [id number] : 2000 LOCATION: ER AGE: 18 SEX: M EXAM STATUS: REG ER ORD. PHYSICIAN: MARY VILLALPANDO DO REASON: chest pain, soa PROCEDURE: CHEST AP ONLY CHEST AP ONLY Clinical History: Chest pain and dyspnea Technique: AP view of the chest was obtained at 07/15/2019 3:27 AM. Comparison: June 14, 2019. Findings: The cardiomediastinal silhouette is normal. The pulmonary vasculature is normal. There are linear opacities in the lung bases left more than right. Impression: Mild basal infiltrates likely discoid atelectasis. Electronically signed by: Merry Quintanilla III, MD (07/15/2019 3:46 AM) [id number] DICTATED AND SIGNED BY: MERRY QUINTANILLA III, MD DATE: 07/15/19 0346 CC: MARY GATES MD; MARY VILLALPANDO DO ~ Course & Med Decision Making: Course & Med Decision Making Pertinent Labs and Imaging studies reviewed. (See chart for details) Patient is a 18-year-old male with a history of SVT, WPW, currently on levothyroxine , metoprolol, scheduled for cardiac ablation sometime in August, woke up this morning with chest pain and heart palpitation. He came to ER with heart rate of about 230 beats per minutes, having chest pain trouble breathing a nd diaphoresis. Patient was given 5 mg of Lopressor IV, his heart rate slowed down to about 154 bpm but then went back up to about 200 beats per minutes. Patient continued to have diaphoresis, therefore he was given IV fluids, his blood pressure was rechecked and it was 136/75, heart rate was about 220 bpm, patient was given 5 mg of Versed IV, he was then cardioverted synchronized at 150 J. He was converted to NSR. He felt much better and his blood pressure improved, no longer diaphoresis. Patient will be admitted to the hospital for observation. Critical care time was [45] minutes exclusive of procedures. Dragon Disclaimer: Dragon Disclaimer: This electronic medical record was generated, in whole or in part, using a voice recognition dictation system. Departure Departure: Impression: Primary Impression: WPW (Qykpm-Tgrjyserv-Tuzjx syndrome) Additional Impressions: SVT (supraventricular tachycardia) Chest pain Disposition: ADMITTED INPATIENT Condition: IMPROVED Referrals: MARY GATES MD (PCP) Procedural Sedation Proc Sed Indication:electrical cardioversion due to SVT/WPW Consent: FROM PATIENT Physician Involvement: The attending physician was present and supervising this procedure. Pre-Sedation Documentation and Exam: ABOVE NOTE Airway Assessment: CLEAR, INTACT Prior History of Anesthesia Complications: NONE ASA Classification: 1 Sedation/ Anesthesia Plan: MODERATE SEDATION Medications Used: 5 MG VERSED IV Monitoring and Safety: The patient was placed on a medical support assistant and vital signs, pulse oximetry and level of consciousness were continuously evaluated throughout the procedure. The patient was closely monitored until recovery from the medications was complete and the patient had returned to baseline status. Respiratory therapy was on standby at all times during the procedure. (The following sections must be completed) Post-Sedation Vital Signs: [EDM.VS] Post-Sedation Exam: STABLE. Complications: NONE Vital Signs Vital Signs Date Time Temp Pulse Resp B/P (MAP) Pulse Ox O2 Delivery O2 Flow Rate FiO2 07/15/19 02:23 97.6 223 18 135/66 (89) 96 Room Air MARY VILLALPANDO DO July 15, 2019 03:30
--- NOTE | 2019-07-15 03:48 | RAD ---
CHEST AP ONLY Clinical History: Chest pain and dyspnea Technique: AP view of the chest was obtained at 07/15/2019 3:27 AM. Comparison: June 14, 2019. Findings: The cardiomediastinal silhouette is normal. The pulmonary vasculature is normal. There are linear opacities in the lung bases left more than right. Impression: Mild basal infiltrates likely discoid atelectasis. Electronically signed by: Go Torres III, MD (07/15/2019 3:46 AM) [id number]
[2019-07-15 04:40] VITALS: BP 128/84
--- NOTE | 2019-07-15 06:58 | EKG ---
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
[2019-07-15] MEDS ORDERED: LEVOTHYROXINE 100 MCG TABLET PO SCH (07:30)
[2019-07-15 07:58] VITALS: BP 110/72
[2019-07-15] MEDS ORDERED: ASPIRIN ENTERIC COATED 81 MG TABLET.DR. PO SCH (08:00)
--- NOTE | 2019-07-15 08:39 | PDOC2 ---
CARDIAC CONSULT DATE OF CONSULT Date Of Consult DATE: 07/15/19 TIME: 08:31 REASON FOR CONSULT Reason for Consult SVT WPW REFERRING PHYSICIAN Referring Physician Dr. Castellano SOURCE Source: Chart review, Patient HPI History of Present Illness This is a 18yo male, with a history of WPW, who presented secondary to racing heart rate, palpitations. Report he laid down to sleep last night late and began having palpitations. Could tell that his heart was beating very rapid. Was diaphoretic and short of breath. Palpitations persisted so he came into the ED for further evaluation and treatment. Was noted in SVT up arrival. Initially given 5 mg of Lopressor IV. Heart rate slowed to about 154 bpm, but then went back up to about 200 beats per minute. Patient was eventually given sedation and cardioverted successfully back to SR. Has been maintaining overnight. Reports compliance with meds. Was here in June for same. Was successfully cardioverted in ED. Was started on metoprolol at that time. TSH noted to be elevated. Was started on replacement therapy. Follows with [facility] cardiology. Has ablation scheduled 08/05/19. PAST MEDICAL HISTORY Past Medical History Cardiovascular: Other (SVT, WPW) Endocrine: Other (morbid obesity, hypothyroidism) PAST SURGICAL HISTORY Past Surgical History: No pertinent history FAMILY HISTORY Family History: Hypertension SOCIAL HISTORY Social History Smoke: No ALCOHOL: none Drugs: None Lives: with Family CURRENT MEDICATIONS Current Medications Current Medications Metoprolol Tartrate (Lopressor Vial) 5 mg 1X ONCE IV Last administered on 07/15/19at 02:42; Start 07/15/19 at 03:00; Stop 07/15/19 at 03:11; Status DC Midazolam HCl (Versed) 5 mg STK-MED ONCE .ROUTE ; Start 07/15/19 at 02:51; Stop 07/15/19 at 02:51; Status DC Ondansetron HCl (Zofran) 4 mg PRN Q4HRS PRN IVP NAUSEA/VOMITING; Start 07/15/19 at 03:30; Stop 07/16/19 at 03:29 Midazolam HCl (Versed) 5 mg 1X ONCE IV Last administered on 07/15/19at 02:58; Start 07/15/19 at 02:58; Stop 07/15/19 at 05:27; Status DC Sodium Chloride 1,000 ml @ 1,000 mls/hr 1X ONCE IV Last administered on 07/15/19at 02:36; Start 07/15/19 at 02:36; Stop 07/15/19 at 05:27; Status DC Sodium Chloride 1,000 ml @ 1,000 mls/hr 1X ONCE IV Last administered on 07/15/19at 02:50; Start 07/15/19 at 02:50; Stop 07/15/19 at 05:27; Status DC Aspirin (Aspirin Enteric Coated) 81 mg DAILYWBKFT PO Last administered on 07/15/19at 07:55; Start 07/15/19 at 08:00 Levothyroxine Sodium (Synthroid) 100 mcg DAILY06 PO Last administered on 07/15/19at 07:55; Start 07/15/19 at 07:30 Metoprolol Tartrate (Lopressor) 25 mg BID PO Last administered on 07/15/19at 07:58; Start 07/15/19 at 09:00 Non-Formulary Medication (Venlafaxine Hcl (Venlafaxine Hcl Er)) 2 tab DAILY PO ; Start 07/15/19 at 09:00; Status UNV Active Scripts Active Aspirin Ec (Aspirin) 81 Mg Tablet.dr 81 Mg PO DAILYWBKFT 30 Days Metoprolol Tartrate 25 Mg Tablet 25 Mg PO BID 30 Days Reported Levothyroxine Sodium 100 Mcg Tablet 1 Tab PO DAILY06 Venlafaxine Hcl Er (Venlafaxine Hcl) 225 Mg Tab.er.24 2 Tab PO DAILY ALLERGIES Allergies: Uncoded Allergies: anesthesia (Adverse Reaction, Mild, Nausea, 07/15/19) ROS Review of Systems 14 point ROS conducted with pertinent positives noted above in HPI PHYSICAL EXAM Physical Exam General: Alert, Oriented X3, Cooperative, No acute distress HEENT: Atraumatic Lungs: Clear to auscultation, Normal air movement Heart: Regular rate Abdomen: Soft, Other (obese) Skin: No rashes, No breakdown Neuro: Normal speech, Sensation intact Psych/Mental Status: Mental status NL, Mood NL MUSCULOSKELETAL: No joint tenderness VITALS Vital Signs Vital Signs Date Time Temp Pulse Resp B/P (MAP) Pulse Ox O2 Delivery O2 Flow Rate FiO2 07/15/19 08:00 Room Air 07/15/19 07:58 96.8 81 18 110/72 (85) 97 07/15/19 05:07 2.0 LABS LABS Laboratory Tests Test 07/15/19 02:36 White Blood Count 12.5 x10^3/uL (4.0-11.0) Red Blood Count 5.34 x10^6/uL (4.30-5.70) Hemoglobin 13.2 g/dL (13.0-17.5) Hematocrit 40.2 % (39.0-53.0) Mean Corpuscular Volume 75 fL (79-100) Mean Corpuscular Hemoglobin 25 pg (25-35) Mean Corpuscular Hemoglobin Concent 33 g/dL (31-37) Red Cell Distribution Width 14.6 % (11.5-14.5) Platelet Count 402 x10^3/uL (140-400) Neutrophils (%) (Auto) 56 % (31-73) Lymphocytes (%) (Auto) 31 % (24-48) Monocytes (%) (Auto) 8 % (0-9) Eosinophils (%) (Auto) 4 % (0-3) Basophils (%) (Auto) 0 % (0-3) Neutrophils # (Auto) 7.1 x10^3uL (1.8-7.7) Lymphocytes # (Auto) 3.9 x10^3/uL (1.0-4.8) Monocytes # (Auto) 1.0 x10^3/uL (0.0-1.1) Eosinophils # (Auto) 0.5 x10^3/uL (0.0-0.7) Basophils # (Auto) 0.0 x10^3/uL (0.0-0.2) Sodium Level 139 mmol/L (136-145) Potassium Level 3.9 mmol/L (3.5-5.1) Chloride Level 104 mmol/L (98-107) Carbon Dioxide Level 24 mmol/L (21-32) Anion Gap 11 (6-14) Blood Urea Nitrogen 19 mg/dL (8-26) Creatinine 1.0 mg/dL (0.7-1.3) Estimated GFR (Cockcroft-Gault) 95.3 BUN/Creatinine Ratio 19 (6-20) Glucose Level 107 mg/dL (70-99) Calcium Level 9.1 mg/dL (8.5-10.1) Magnesium Level 2.2 mg/dL (1.8-2.4) Total Bilirubin 0.3 mg/dL (0.2-1.0) Aspartate Amino Transf (AST/SGOT) 25 U/L (15-37) Alanine Aminotransferase (ALT/SGPT) 75 U/L (16-63) Alkaline Phosphatase 98 U/L (46-116) Troponin I Quantitative < 0.017 ng/mL (0-0.055) Total Protein 8.1 g/dL (6.4-8.2) Albumin 3.7 g/dL (3.4-5.0) Albumin/Globulin Ratio 0.8 (1.0-1.7) ASSESSMENT/PLAN Assessment/Plan 1. SVT, symptomatic; s/p cadioversion. Converted to SR and has been maintaining. 2. 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 Follows with [facility]. Cardiac ablation scheduled 08/05/19. 3. Hypothyroidism; on replacement 4. Dyslipidemia Recommendations TSH Resume metoprolol for rate control ASA Consider rhythm maintenance therapy. 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 MICHELLE HILL APRN July 15, 2019 08:39
[2019-07-15] MEDS ORDERED: METOPROLOL TART IMMED RELEASE 25 MG TABLET PO SCH (09:00)
[2019-07-15] MEDS ORDERED: VENLAFAXINE HCL PO SCH (09:00)
--- NOTE | 2019-07-15 10:09 | HP ---
ADMIT DATE: 07/15/2019 HISTORY OF PRESENT ILLNESS: A 18-year-old male who had medical cardiac problems, came in with chest pain and palpitations. He has a history of SVT, WPW. The patient came in, had apparently an episode of SVT with a tachycardic rate of 230, had chest pain with breathing and diaphoresis were noted. He was initially given Lopressor 5 mg. Heart rate slowed down to 154, but then he went back up to 200. Dr. Castellano also then went ahead and got a cardio conversion. The patient was cardio converted down there in the Emergency Room and was stabilized. He was admitted for further evaluation and Cardiology consultation. The patient in turn will be contacted with his claims administrator at [facility] to determine any oral medication. Nurse practitioner, Radha Neil, is leading the information there. In any case, the patient is resting comfortably, presently without chest pain and doing well. PAST MEDICAL HISTORY: History of Dmyhv-Ouejtuinz-Dpjxt, anticoagulation; hypertension; obesity; left arm fracture repair in 04/2018, screws and plates; depression and anxiety; influenza vaccination on 07/15/2019. FAMILY HISTORY: Depression, breast cancer, anxiety, hypertension. ALLERGIES: Adverse reaction to ANESTHESIA. SOCIAL HISTORY: The patient denies smoking, alcohol or drug use. He is a full code of course. REVIEW OF SYSTEMS: The patient presently has mild headache, but nothing significant. Denies any visual changes. No blurred vision, double vision. Denies any trouble swallowing. Denies any chest pain, shortness of breath presently. Denies any abdominal pain. Denies any nausea, vomiting, diaphoresis. Denies any problems with bowels or diarrhea. Denies any problems with any neurological dysfunction, no weakness anywhere. Neurologically, the patient was alert and oriented x 3. PHYSICAL EXAMINATION: GENERAL: Pleasant white male, morbidly obese. VITAL SIGNS: Blood pressure 110/72, respiratory rate 18, pulse 80 presently, was as high as about 230. He is afebrile, oxygen saturation 97%. HEENT: The patient's head was atraumatic, normocephalic. Eyes: PERRLA without jaundice. Mouth and throat were normal. NECK: Supple. LUNGS: Clear to auscultation. CARDIOVASCULAR: Regular sinus rhythm, S1, S2, without murmur, rub, thrill, or extra heart sound. ABDOMEN: Soft, protuberant, nontender. No rebound or guarding. Positive bowel sounds. EXTREMITIES: No clubbing, cyanosis. Trace edema. Left upper arm shows previous fractured wound. NEUROLOGIC: The patient is alert and oriented. Speech is fluent, spontaneous, appropriate. Cranial nerves all normal. He is moving all extremities well. LABORATORY DATA: The patient's labs were basically all normal. White count was a little bit elevated at 12, hemoglobin 13 and hematocrit 40, platelets normal at 402. PT, PTT not obtained. Sodium and potassium 139 and 3.9, BUN and creatinine 19 and 1, glucose 107. UA not obtained. TSH not obtained. In any case, the patient is resting fairly comfortably; as noted, nurse practitioner returned to his claims administrator at [facility] to determine if they want to start him on any premedication. He is apparently to be electrocardio converted at some time here in a close future. IMPRESSION: Supraventricular tachycardia, symptomatic, Ludki-Waoiphuoz-Rrxsz diagnosed in 2018; hypothyroidism and dyslipidemia. Medications were noted and reconciled in the computer, metoprolol, aspirin, and levothyroxine. MARY GATES MD DR: LOUISA/cheo JOB#: [id number] / [id number]
[2019-07-15 11:00] VITALS: BP 133/72
[2019-07-15 16:53] LABS: FREE T4 0.97 ng/dL (0.76-1.46); THYROID STIM HORMONE (TSH) 11.139 uIU/mL (0.358-3.740)
== END 2019-07-15 14:28 | disposition home or self-care (01) | DRG 309 ==
LOC: ER 02:23 → 1 SOUTH 03:21 → OBSVTOIN 03:21
PROVIDERS: ADMIT Family Medicine; ATTEND Family Medicine
PROC: 5A2204Z Restoration of Cardiac Rhythm, Single (ICD-10-PCS; principal; 2019-07-15)
DX: I45.6 Pre-excitation syndrome (principal); J98.11 Atelectasis; I47.1 Supraventricular tachycardia; E03.9 Hypothyroidism, unspecified; E78.5 Hyperlipidemia, unspecified; I10 Essential (primary) hypertension; Z80.3 Family history of malignant neoplasm of breast; Z81.8 Family history of other mental and behavioral disorders; Z82.49 Family history of ischemic heart disease and other diseases of the circulatory system; E66.01 Morbid (severe) obesity due to excess calories; F32.9 Major depressive disorder, single episode, unspecified; F41.9 Anxiety disorder, unspecified
CPT/HCPCS: 31500; 36415; 71045; 80053; 83735; 84439; 84443; 84484; 85025; 93005; 96374; J2250; J3490; 99285-25; J7030